=== PATIENT | male | born 1955 | race Caucasian/White ===

== ENCOUNTER 2021-01-20 13:13 | Outpatient (CLI) | payer MEDICARE, MEDICAID | END 2021-01-20 13:14 | disposition home or self-care (01) | LOC: CT 13:13 | PROVIDERS: ATTEND Family Medicine | DX: Z87.891 Personal history of nicotine dependence (principal) | CPT/HCPCS: 71271 ==

== ENCOUNTER 2021-08-24 09:49 | Outpatient (CLI) | payer MEDICARE, MEDICAID | END 2021-08-24 09:50 | disposition home or self-care (01) | LOC: CSHULT 09:49 | PROVIDERS: ATTEND Family Medicine | DX: R76.8 Other specified abnormal immunological findings in serum (principal); N28.1 Cyst of kidney, acquired | CPT/HCPCS: 76705 ==

== ENCOUNTER 2021-09-14 08:08 | Outpatient (CLI) | payer MEDICARE, MEDICAID ==
[2021-09-14 09:09] LABS: Estimated GFR-MDRD - POC Greater than 90
== END 2021-09-14 08:09 | disposition home or self-care (01) ==
LOC: CSHCT 08:08
PROVIDERS: ATTEND Family Medicine
DX: K55.1 Chronic vascular disorders of intestine (principal); Z95.828 Presence of other vascular implants and grafts; R63.4 Abnormal weight loss; Z87.891 Personal history of nicotine dependence; I70.0 Atherosclerosis of aorta; I74.09 Other arterial embolism and thrombosis of abdominal aorta; N28.1 Cyst of kidney, acquired
CPT/HCPCS: 74174; 82565